=== PATIENT | female | born 1970 | race Hispanic/Latino ===

== ENCOUNTER 2018-01-28 05:53 | Day surgery (SDC) | payer OTHER ==
[2018-01-25 16:35] LABS: Absolute Lymphocytes (CBC) 1.3 K/uL (0.7-4.9); Absolute Monocytes 0.4 K/uL (0.1-1.3); Absolute Neutrophil 3.6 K/uL (1.8-8.0); Basophils % 0.9 % (0-1.3); Hematocrit 36.5 % (36.0-45.0); Lymphocytes % 23.8 % (15.3-44.8); MCH 25.7 pg (27.0-35.0); MCV 79.6 fL (80-100); MPV 8.9 fL (7.6-11.3); RBC Red Blood Cell Count 4.59 M/uL (3.86-4.86)
[2018-01-25 16:36] LABS: Urine Appearance CLEAR; Urine Bilirubin NEGATIVE (NEG); Urine Blood 1+ (NEG); Urine Color YELLOW; Urine Glucose NEGATIVE (NEG); Urine Protein NEGATIVE (NEG); Urine Specific Gravity >=1.030 (1.005-1.030); Urine pH 5.5 (5.0-7.0)
[2018-01-25 16:48] LABS: BUN Blood Urea Nitrogen 17 mg/dL (7-18); Bicarbonate 27 mmol/L (21-32); Glucose Level 81 mg/dL (74-106); Potassium 4.1 mmol/L (3.5-5.1); Sodium Level 142 mmol/L (136-145)
[2018-01-25 16:49] LABS: Urine Microscopic Reflex ORDER UMIC
[2018-01-25 17:05] LABS: Urine Bacteria 20-50 /HPF (<20); Urine RBC <5 /HPF (NONE SEEN)
[2018-01-25 17:06] LABS: Urine Culture Reflex Order REFLEXED
--- NOTE | 2018-01-25 19:29 | EKG ---
Test Date: 2018-01-25 Test Time: 16:03:10 Fisher Lobster: MINNIE MEASUREMENT RESULTS: Intervals: Rate: 56 HI: 142 QRSD: 86 QT: 432 QTc: 416 Woodrow: P: 67 HI: 142 QRS: 77 T: 51 INTERPRETIVE STATEMENTS: Sinus bradycardia Possible Left atrial enlargement Borderline ECG Compared to ECG 04/13/2015 12:32:48 Right-axis deviation no longer present Electronically Signed On 01-25-18 19:29:19 CDT by Jaime Salinas
[2018-01-28] MEDS ORDERED: Ringers Lactate 1,000 ML IV ONE ×2 (06:11→10:01)
[2018-01-28] MEDS ORDERED: SCOPOLAMINE HYDROBROMIDE PATCH TD ONE (06:11)
[2018-01-28] MEDS: CEFAZOLIN/SWI 1gm 1 GM/10 ML SYR ONE ×2 (06:31→07:10)
[2018-01-28] MEDS ORDERED: LIDOCAINE 2% MPF 5 ML VIAL ONE (06:48)
[2018-01-28] MEDS ORDERED: DEXAMETHASONE 10 MG/ML VIAL ONE (06:48)
[2018-01-28] MEDS ORDERED: FENTANYL CITR 250 MCG/5 ML ONE ×2 (06:48→08:55)
[2018-01-28] MEDS ORDERED: PROPOFOL 200 MG/20 ML VIAL IV ONE (06:48)
[2018-01-28] MEDS ORDERED: ROCURONIUM 50 MG/5 ML VIAL IV ONE (06:48)
[2018-01-28] MEDS ORDERED: MIDAZOLAM HCL 2 MG/2 ML INJ ONE (06:48)
[2018-01-28] MEDS ORDERED: ONDANSETRON HCL 40 MG/20 ML VIAL ONE (06:50)
[2018-01-28] MEDS: NA CHLORIDE 0.9% 1,000 ML ONE ×2 (06:52→07:25)
[2018-01-28] MEDS ORDERED: KETOROLAC 30 MG/ML INJ ONE (09:29)
[2018-01-28] MEDS ORDERED: Mastisol Adhesive Liq ONE (10:03)
[2018-01-28] MEDS ORDERED: IBUPROFEN 200 MG TAB PO ONE (12:08)
[2018-01-28] MEDS ORDERED: IBUPROFEN 400 MG TAB ONE (12:09)
--- NOTE | 2018-01-28 13:21 | OP ---
Date of Procedure: 01/28/2018 Surgeon: Svetlana Barillas MD Greenhouse Worker: Dr. Fung. Preoperative Diagnoses: Abnormal uterine bleeding-ovulatory dysfunction or adenomyosis. Postoperative Diagnoses: Abnormal uterine bleeding-ovulatory dysfunction or adenomyosis. Procedures Performed: Total laparoscopic hysterectomy, bilateral salpingectomy, cystoscopy. Anesthesia: General endotracheal. Complications: No complications. Drains: No drains. Condition: The patient is stable. Estimated Blood Loss: Minimal. Specimens: Uterus, bilateral tubes. Findings: There was a small pocket of possible endometriosis close to the left uterosacral. However , no other endometriosis was seen. Both ovaries and tubes appeared to be normal, tubes with the evid ence of tubal ligation. The uterus retroflexed and slightly enlarged. There was a superficial seros al injury to the bowel in the sigmoid during the time of the hysterectomy, however, on inflation with air, it was completely found to be intact. Consultation with Dr. Ramirez obtained and recommendation was to leave it alone and not put any further sutures. The wound was hemostatic. There were adhesio ns in the left lower quadrant, which were also taken down. Both ureters without any abnormal placeme nt. Description Of Procedure: After informed consent was verified, patient was taken back to the OR, [facility] in a supine fashion on the operating table. After general anesthesia was given, she was placed i n dorsal lithotomy position. Using pelvic exam, uterus found to be retroflexed. No adnexal masses w ere felt, slightly enlarged. Abdomen, vulva, vagina, and perineum were prepped and draped in a steri le fashion. Schulte was placed to drain the bladder and attached to cysto tubing for retrograde fillin g bag. A large VCare inserted into the uterus and fixed in place. This area was then draped. A 1 cm infraumbilical incision was made along the old scar. Fascia exposed, incised, tagged with 0 V icryl sutures. Peritoneum entered bluntly. S retractors placed. Jennifer introduced. Site of entry was checked and was unremarkable. Liver and gallbladder were unremarkable as well. There was a wallace gn left ovarian cyst. However, no other endometriosis was found. Uterus was found to be retroflexed . A 10 mm suprapubic and 5 mm left lower quadrant ports were placed under direct vision. An Drew-M asters pocket was formed in the peritoneum on the left side just at the uterine artery. No other end ometriosis seen. Using a 5 mm LigaSure, the anterior peritoneum on the broad towards the left was opened. Then dissec tion was carried towards the bladder and all this was taken down with the help of the LigaSure. Once this was taken down to the level of the right round ligament, then the utero-ovarian ligament, mesos alpinx were cut. Then the round ligament was taken down. Posterior peritoneum was opened up all the way to the attachment of the left uterosacral. The broad ligament was skeletonized. Vessels expose d. Similar dissection performed on the opposite side, taking the utero-ovarian, mesosalpinx, round l igament, and posterior peritoneum to the right uterosacral, skeletonizing the broad ligament then in the suprapubic area. The vesicovaginal space was opened up using a monopolar hook blade, opening up this space on the top of the VCare cup. Then the bladder was dissected inferiorly. We went on to op en up the space medial to the vessels with the help of a monopolar hook blade. Then bipolar basket t ip was used to take down the vessels first on the right side. Then, the cardinal ligament was also t aken down. Similar dissection performed on the opposite side. There was good hemostasis. Circumfer ential colpotomy was performed with monopolar hook blade and specimen pulled out through the vagina. The tubes were then removed with the help of the LigaSure. The ovaries appeared to be healthy and in tact, and the pictures were taken. While doing the dissection on the left side, inadvertently, the t ip of the LigaSure hit the sigmoid and this was where there was a small cut, most likely from a contu candice. After consultation was obtained intraoperatively, the air was insufflated into the bowel and with occ lusion superiorly and fluid filled the pelvis, the area of injury was submerged. There was no eviden ce of any air leak, so no repair was done since it was just a superficial injury and not going throug h the mucosa. Both ureters had normal peristalsis on both sides. No electrical, mechanical, or thermal injury to t hem. A 0 Vicryl was used to close the vaginal cuff, 2 simple angle stitches and 3 [id number] i n the middle. There was excellent hemostasis. Thorough irrigation and suction were performed. Cyst oscopy was performed. The 17-Cymro sheath, 30-degree lens and normal saline. Both ureteric orifice s were well visualized, and there were strong jets of urine from both. No evidence of any trauma to the bladder. The bladder drained and cystoscope removed as well as the vaginal bulb for occlusion. Schulte was left out. The abdomen was desufflated after taking the ports under direct vision. Fascia at the umbilicus was closed with the help of [id number] 0 Vicryl and a simple 0 Vicryl at the suprapubic. All skin i ncisions closed with the help of interrupted 4-0 Monocryl and then the umbilical incision with a cont inuous subcuticular Monocryl. The patient was recovered from anesthesia after instrument, needle, an d sponge counts x3 were correct at the end of the case. The patient tolerated the procedure well. S he will follow up with me in 1 week. She got 1 g of Ancef preop. Then, she will be given 1 more gra m before she is discharged. BRENT/JORJE Voice ID: [id number] Report ID: [id number]
== END 2018-01-28 12:38 | disposition home or self-care (01) ==
LOC: OR 05:53
PROVIDERS: ATTEND Obstetrics & Gynecology
PROC: 0UT74ZZ Resection of Bilateral Fallopian Tubes, Percutaneous Endoscopic Approach (ICD-10-PCS; 2018-01-28)
PROC: 0UT94ZZ Resection of Uterus, Percutaneous Endoscopic Approach (ICD-10-PCS; principal; 2018-01-28 07:00)
DX: N92.1 Excessive and frequent menstruation with irregular cycle (principal); N83.8 Other noninflammatory disorders of ovary, fallopian tube and broad ligament; N80.0 Endometriosis of uterus; K91.72 Accidental puncture and laceration of a digestive system organ or structure during other procedure; Y65.8 Other specified misadventures during surgical and medical care; Y82.9 Unspecified medical devices associated with adverse incidents; Y92.234 Operating room of hospital as the place of occurrence of the external cause; E28.9 Ovarian dysfunction, unspecified; D50.9 Iron deficiency anemia, unspecified; I10 Essential (primary) hypertension; Z83.3 Family history of diabetes mellitus; Z82.49 Family history of ischemic heart disease and other diseases of the circulatory system; Z82.3 Family history of stroke
CPT/HCPCS: 36415; 80048; 81003; 81015; 81025; 85025; 86850; 86900; 86901; 87086; 87088; 88307; 93005; J0690; J1100; J2250; J2405; J7030

== ENCOUNTER 2018-02-18 20:33 | Observation (INO) | payer OTHER ==
[2018-02-18] MEDS ORDERED: NA CHLORIDE 0.9% 1,000 ML ONE (21:12)
[2018-02-18 21:20] LABS: Absolute Lymphocytes (CBC) 1.2 K/uL (0.7-4.9); Absolute Monocytes 0.5 K/uL (0.1-1.3); Absolute Neutrophil 6.1 K/uL (1.8-8.0); Basophils % 0.6 % (0-1.3); Eosinophils % 2.4 % (0-4.4); Hematocrit 35.1 % (36.0-45.0); MCH 26.7 pg (27.0-35.0); MCV 79.9 fL (80-100); MPV 8.8 fL (7.6-11.3); Monocytes % 6.5 % (3.3-12.3); RBC Red Blood Cell Count 4.39 M/uL (3.86-4.86)
[2018-02-18 22:02] LABS: Potassium 3.8 mmol/L (3.5-5.1)
--- NOTE | 2018-02-18 23:28 | EDPHYS ---
Physician Documentation [facility] Name: Lexi Smith Age: 47 yrs Sex: Female : 1970 Arrival Date: 02/18/2018 Time: 20:34 Bed 20 Private MD: ED Physician Johnny Delgadillo HPI: 02/18 21:22 This 47 yrs old Female presents to ER via EMS with complaints of vaginal kav bleeding s/p hysterectomy 2 weeks ago. 21:22 The patient presents with vaginal bleeding that is heavy. Onset: The symptoms/episode kav began/occurred acutely, just prior to arrival. Modifying factors: The symptoms are alleviated by nothing, the symptoms are aggravated by nothing. Associated signs and symptoms: Pertinent positives: vaginal bleeding, Pertinent negatives: cramping, dysuria, nausea, vomiting. Severity of symptoms: At their worst the symptoms were moderate, just prior to arrival. The patient is sexually active, reportedly has a single partner. The patient has been recently seen by a physician: Dr. gay today. S/P Laproscopic Vaginal Hysterectomy approximately 2 weeks ago /Dr. Washburn. 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 - Social history:: Smoking status: Patient/guardian denies using tobacco. - Ebola Screening: : Patient negative for fever greater than or equal to 101.5 degrees Fahrenheit, and additional compatible Ebola Virus Disease symptoms. - Family history:: not pertinent. - Hospitalizations: : No recent hospitalization is reported. - History obtained from: spouse. ROS: 21:26 Constitutional: Negative for fever, chills, and weight loss, Eyes: Negative for injury, kav pain, redness, and discharge, ENT: Negative for injury, pain, and discharge, Neck: Negative for injury, pain, and swelling, Cardiovascular: Negative for chest pain, palpitations, and edema, Respiratory: Negative for shortness of breath, cough, wheezing, and pleuritic chest pain, Abdomen/GI: Negative for abdominal pain, nausea, vomiting, diarrhea, and constipation, Back: Negative for injury and pain, MS/Extremity: Negative for injury and deformity, Skin: Negative for injury, rash, and discoloration, Neuro: Negative for headache, weakness, numbness, tingling, and seizure, Psych: Negative for depression, anxiety, suicide ideation, homicidal ideation, and hallucinations, Allergy/Immunology: Negative for hives, rash, and allergies, Endocrine: Negative for neck swelling, polydipsia, polyuria, polyphagia, and marked weight changes, Hematologic/Lymphatic: Negative for swollen nodes, abnormal bleeding, and unusual bruising. 21:26 : Positive for vaginal bleeding, Negative for urinary symptoms. Exam: 21:26 Constitutional: This is a well developed, well nourished patient who is awake, alert, kav and in no acute distress. Head/Face: Normocephalic, atraumatic. Eyes: Pupils equal round and reactive to light, extra-ocular motions intact. Lids and lashes normal. Conjunctiva and sclera are non-icteric and not injected. Cornea within normal limits. Periorbital areas with no swelling, redness, or edema. ENT: Nares patent. No nasal discharge, no septal abnormalities noted. Tympanic membranes are normal and external auditory canals are clear. Oropharynx with no redness, swelling, or masses, exudates, or evidence of obstruction, uvula midline. Mucous membranes moist. Neck: Trachea midline, no thyromegaly or masses palpated, and no cervical lymphadenopathy. Supple, full range of motion without nuchal rigidity, or vertebral point tenderness. No Meningismus. Chest/axilla: Normal chest wall appearance and motion. Nontender with no deformity. No lesions are appreciated. Cardiovascular: Regular rate and rhythm with a normal S1 and S2. No gallops, murmurs, or rubs. Normal PMI, no JVD. No pulse deficits. Respiratory: Lungs have equal breath sounds bilaterally, clear to auscultation and percussion. No rales, rhonchi or wheezes noted. No increased work of breathing, no retractions or nasal flaring. Abdomen/GI: Soft, non-tender, with normal bowel sounds. No distension or tympany. No guarding or rebound. No evidence of tenderness throughout. Back: No spinal tenderness. No costovertebral tenderness. Full range of motion. Pelvic Exam: Normal external genitalia. Speculum exam with closed cervical os, no discharge or bleeding noted. Bimanual exam with normal adnexa, no adnexal or cervical motion tenderness. Normal uterus. Skin: Warm, dry with normal turgor. Normal color with no rashes, no lesions, and no evidence of cellulitis. MS/ Extremity: Pulses equal, no cyanosis. Neurovascular intact. Full, normal range of motion. Neuro: Awake and alert, GCS 15, oriented to person, place, time, and situation. Cranial nerves II-XII grossly intact. Motor strength 5/5 in all extremities. Sensory grossly intact. Cerebellar exam normal. Normal gait. Psych: Awake, alert, with orientation to person, place and time. Behavior, mood, and affect are within normal limits. 21:26 : Pelvic Exam: External exam: is normal, Speculum exam: moderate bleeding, blood clots in vaginal vault, discharge, bloody. Vital Signs: 20:48 BP 150 / 64; Pulse 73; Resp 16 S; Pulse Ox 99% on R/A; Pain 0/10; jd3 22:01 BP 136 / 65; Pulse 66; Resp 15 S; Pulse Ox 100% on R/A; Pain 0/10; jd3 23:22 BP 156 / 75; Pulse 58; Resp 17 S; Pulse Ox 100% on R/A; jd3 MDM: 20:37 Patient medically screened. pkl 21:33 Data reviewed: vital signs, nurses notes. Physician consultation: Svetlana dunbar was called at 21:36, regarding patient's condition. 21:45 Physician consultation: was contacted at 21:45, would like further tests performed, CT kav scan. 22:17 Physician consultation: was contacted at 22:17, and will see patient in ED. kapercy 23:04 ED course: Dr. Mccormack here to exam patient.. kav 02/18 20:47 Order name: CBC with Diff; Complete Time: 21:30 pkl 02/18 20:47 Order name: Chem 7; Complete Time: 22:17 pk 02/18 21:41 Order name: CT Abd/Pelvis - W/Contrast kav 02/18 23:25 Order name: Type And Screen bs1 Administered Medications: 21:11 Drug: NS 0.9% 1000 ml Route: IV; Rate: 125 ml/hr; Site: left antecubital; jd3 02/19 00:00 Follow up: Response: No adverse reaction; IV Status: Infusion continued upon admission; jd3 IV Intake: 300ml Disposition: 00:50 Co-signature as Attending Physician, Johnny dunbar Disposition: 02/18/18 23:28 Hospitalization ordered by Svetlana Barillas for Observation. Preliminary diagnosis is Hematoma of obstetric wound. - [facility]. - Status is Observation. jd3 - Condition is Stable. - Problem is new. - Symptoms are unchanged. UTI on Admission? No Signatures: Dispatcher [employer] EDMeredith Martinez, RN Johnny Romero MD MD pkl Vern, Katherine, DIRECT SUPPORT [facility] DIRECT SUPPORT [facility] Laurent White RN RN jd3 Corrections: (The following items were deleted from the chart) 02/18 21:06 20:54 IV Saline Lock ordered. jd3 jd3 23:58 23:28 Hospitalization Ordered by Svetlana Barillas MD for Observation. Preliminary diagnosis is Hematoma of obstetric wound. Bed requested for Telemetry/MedSurg (observation). Status is Observation. Condition is Stable. Problem is new. Symptoms are unchanged. UTI on Admission? No. kav 02/19 00:00 02/18 23:58 02/18/2018 23:28 Hospitalization Ordered by Svetlana Barillas MD for jd3 Observation. Preliminary diagnosis is Hematoma of obstetric wound. Bed requested for [facility]. Status is Observation. Condition is Stable. Problem is new. Symptoms are unchanged. UTI on Admission? No. kl
--- NOTE | 2018-02-18 23:28 | ER ---
Nurse's Notes [facility] Name: Lexi Smith Age: 47 yrs Sex: Female : 1970 Arrival Date: 02/18/2018 Time: 20:34 Bed 20 Private MD: Diagnosis: Hematoma of obstetric wound Presentation: 02/18 20:35 Presenting complaint: EMS states: "S/P partial hysterectomy with Dr Barillas about 2 bs1 weeks ago, the instructions stated that if she started bleeding to come to the ER, patient started bleeding heavily today around 7:40pm.". 20:35 Method Of Arrival: [facility] bs1 20:45 Transition of care: patient was not received from another setting of care. Onset of jd3 symptoms was February 18, 2018. Risk Assessment: Do you want to hurt yourself or someone else? Patient reports no desire to harm self or others. Initial Sepsis Screen: Does the patient meet any 2 criteria? No. Patient's initial sepsis screen is negative. Does the patient have a suspected source of infection? No. Patient's initial sepsis screen is negative. Care prior to arrival: IV initiated. 20 GA, in the left antecubital area. 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 - Social history:: Smoking status: Patient/guardian denies using tobacco. - Ebola Screening: : Patient negative for fever greater than or equal to 101.5 degrees Fahrenheit, and additional compatible Ebola Virus Disease symptoms. - Family history:: not pertinent. - Hospitalizations: : No recent hospitalization is reported. - History obtained from: spouse. Screenin:49 Abuse screen: Denies threats or abuse. Nutritional screening: No deficits noted. jd3 Tuberculosis screening: No symptoms or risk factors identified. Fall Risk IV access (20 points). Ambulatory Aid- None/Bed Rest/Nurse Assist (0 pts). Gait- Normal/Bed Rest/Wheelchair (0 pts) Mental Status- Oriented to own ability (0 pts). Total Garcia Fall Scale indicates No Risk (0-24 pts). Assessment: 20:41 General: Appears uncomfortable, Behavior is cooperative, appropriate for age, anxious. jd3 Pain: Denies pain. Neuro: Level of Consciousness is awake, alert, obeys commands, Oriented to person, place, time, situation, Appropriate for age. Cardiovascular: Heart tones S1 S2 present Capillary refill < 3 seconds Patient's skin is warm and dry. Respiratory: Airway is patent Respiratory effort is even, unlabored, Respiratory pattern is regular, symmetrical, Breath sounds are clear bilaterally. GI: Abdomen is flat, Bowel sounds present X 4 quads. Abd is soft and non tender X 4 quads. Patient currently denies nausea, vomiting. : Reports vaginal bleeding that is heavy flow since 1930 dark in color. EENT: No signs and/or symptoms were reported regarding the EENT system. Derm: Skin is intact, Skin is dry, Skin is normal, Skin temperature is warm. Musculoskeletal: Circulation, motion, and sensation intact. Range of motion: intact in all extremities. 21:30 Reassessment: Patient appears in no apparent distress at this time. Patient and/or jd3 family updated on plan of care and expected duration. Pain level reassessed. Patient is alert, oriented x 3, equal unlabored respirations, skin warm/dry/pink. 22:02 Reassessment: Patient appears in no apparent distress at this time. Patient and/or jd3 family updated on plan of care and expected duration. Pain level reassessed. Patient is alert, oriented x 3, equal unlabored respirations, skin warm/dry/pink. waiting for CT scan. 23:23 Reassessment: Patient appears in no apparent distress at this time. Patient and/or jd3 family updated on plan of care and expected duration. Pain level reassessed. Patient is alert, oriented x 3, equal unlabored respirations, skin warm/dry/pink. pt resting in bed. Dr. Barillas at bedside discussing plan of care with pt. 23:57 Reassessment: Patient appears in no apparent distress at this time. Patient and/or jd3 family updated on plan of care and expected duration. Pain level reassessed. Patient is alert, oriented x 3, equal unlabored respirations, skin warm/dry/pink. report given to OR nurse. and pt taken by bed to OR. Vital Signs: 20:48 BP 150 / 64; Pulse 73; Resp 16 S; Pulse Ox 99% on R/A; Pain 0/10; jd3 22:01 BP 136 / 65; Pulse 66; Resp 15 S; Pulse Ox 100% on R/A; Pain 0/10; jd3 23:22 BP 156 / 75; Pulse 58; Resp 17 S; Pulse Ox 100% on R/A; jd3 ED Course: 20:34 Patient arrived in ED. ds1 20:37 Johnny Delgadillo MD is Attending Physician. pkl 20:41 Laurent Berger RN is Primary Nurse. jd3 20:47 Triage completed. jd3 20:49 Arm band placed on. jd3 20:49 Patient has correct armband on for positive identification. Placed in gown. Bed in low jd3 position. Call light in reach. Side rails up X2. Adult w/ patient. 20:52 Arline Marsh FNP is PHCP. kav 20:52 Johnny Delgadillo MD is Attending Physician. kav 21:11 CBC with Diff Sent. jd3 21:11 Chem 7 Sent. jd3 21:11 Maintain EMS IV. Dressing intact. Good blood return noted. Site clean \\T\\ dry. Gauge \\T\\ ken 3 site: 20 G left AC. 21:15 Assist provider with pelvic exam: Set up pelvic tray. Performed by Arline GANDHI bs1 Patient tolerated well. 21:44 Radiology exam delayed due to lab results not completed at this time. (BUN/Creatinine). vr 22:04 Radiology exam delayed due to lab results not completed at this time. (BUN/Creatinine). nj 22:[address] via wheelchair. vm2 22:28 CT completed. Patient tolerated procedure well. Patient moved back from CT. vm2 22:33 CT Abd/Pelvis - W/Contrast In Process Unspecified. EDMS 23:00 Assist provider with pelvic exam: Set up pelvic tray. Performed by Svetlana Barillas MD bs1 Patient tolerated well. Dr Barillas informed Nurse Nati to call OR/anesthesia for vaginal exam under anesthesia and possibly repair of vaginal cuff/ possible laproscopy. Informed charge nurse/heating unit installer. account supervisor notified to call out team. 23:26 Svetlana Barillas MD is Hospitalizing Provider. ka 23:59 Patient admitted, IV remains in place. jd3 Administered Medications: 21:11 Drug: NS 0.9% 1000 ml Route: IV; Rate: 125 ml/hr; Site: left antecubital; jd3 02/19 00:00 Follow up: Response: No adverse reaction; IV Status: Infusion continued upon admission; jd3 IV Intake: 300ml Intake: 00:00 IV: 300ml; Total: 300ml. jd3 Outcome: 02/18 23:28 Decision to Hospitalize by Provider. kav 23:58 Admitted to OR accompanied by nurse, via stretcher, with chart, Report called to j bedside report given to OR nurse using the SBAR method. 23:58 Condition: stable 23:58 Instructed on the need for admit, Demonstrated understanding of instructions. 02/19 00:00 Patient left the ED. jd3 Signatures: Dispatcher [employer] EDMS Johnny Delgadillo MD MD pkl Vern, Katherine, SAW CLEANER SAW CLEANER Vianney Lares Victoria vr Jordan, Nathan nj McGuire, Victoria vm2 Laurent Berger RN RN jd3 Nati Parsons RN RN bs1
[2018-02-18] MEDS ORDERED: PROPOFOL 200 MG/20 ML VIAL IV ONE (23:56)
[2018-02-18] MEDS ORDERED: FENTANYL CITR 100 MCG/2 ML ONE (23:57)
[2018-02-18] MEDS ORDERED: LIDOCAINE 1% MPF 5 ML VIAL ONE (23:57)
[2018-02-18] MEDS ORDERED: ROCURONIUM 50 MG/5 ML VIAL IV ONE (23:57)
[2018-02-19] MEDS ORDERED: Ringers Lactate 1,000 ML IV ONE (00:07)
[2018-02-19] MEDS ORDERED: LIDOCAINE 1% W/EPI 1:100,000 MDV 50 ML VIAL ONE (00:24)
[2018-02-19] MEDS ORDERED: VASOPRESSIN 20 UNIT/ML VIAL ONE (00:25)
[2018-02-19] MEDS ORDERED: CEFAZOLIN/SWI 1gm 1 GM/10 ML SYR ONE (00:26)
[2018-02-19] MEDS ORDERED: KETOROLAC 30 MG/ML INJ ONE (00:46)
[2018-02-19] MEDS ORDERED: ONDANSETRON HCL 40 MG/20 ML VIAL ONE (00:46)
[2018-02-19] MEDS ORDERED: DEXAMETHASONE 10 MG/ML VIAL ONE (00:46)
[2018-02-19] MEDS ORDERED: GLYCOPYRROLATE 0.2 MG/ML SYR ONE (00:52)
[2018-02-19] MEDS ORDERED: NEOSTIGMINE 1 MG/ML -5 ML SYRINGE ONE (00:52)
[2018-02-19] MEDS ORDERED: MEPERIDINE HCL 50 MG/ML AMP IV PRN (01:40)
[2018-02-19] MEDS ORDERED: HYDROCODONE/APAP 5/325 MG TAB PO PRN (01:40)
[2018-02-19] MEDS ORDERED: IBUPROFEN 400 MG TAB PO PRN (01:40)
--- NOTE | 2018-02-19 03:33 | CON ---
Date of Consultation: 02/18/2018 Request for consultation from the ER. Chief Complaint For Presentation: Vaginal bleeding 3 weeks postop from a total laparoscopic hysterec shae and bilateral salpingectomy. History Of Present Illness: The patient is a 47-year-old who had heavy menstrual bleeding and severe anemia as this is not treatable conservatively after it has been observed for a while. She was taken for hysterectomy. Hysterectomy was performed on January 28 and vaginal cuff was closed with 2-angle simple 0-Vicryl sutures and 3 [id number] in the middle. The patient had been seen 1 week postop. Her complaints were minimal, some suprapubic pain near the port and with urination. She was treated with empiric antibiotics. No vaginal bleeding. Reports delcid ving mild discharge, brownish in color, intermittently in the last 2 weeks. Occasional left lower qu adrant sharp pain which was minor in the past few days; however, the patient lives at home, does not recollect any hard activity; however, she has been bending over doing her laundry, but not lifting an ything more than 10 pounds per her history. She noticed that she had some vaginal bleeding, went int o the toilet, and saw further bright red blood, and she presented to the ER. On examination here in the ER, her left lower quadrant pain was minimal. On review, her left lower quadrant pain was minima l at this time; however, vaginal bleeding with small clots was seen. The nurse practitioner in the E R had done an exam and clots were evacuated. Pad was placed. There was mild amount of bleeding on t he pad at this time. The patient denies any dizziness, shortness of breath, fever, or chills. Bowels are moving normally. She has been taking iron with a stool softener and has been able to maintain bowel movements normal ly, passing flatus, tolerating her diet at 5:30-6 p.m. this evening. No other problems noted. Urina tion normal. No lower urinary tract symptoms. Review of Systems: All review of systems negative. Past Medical History: Recent diagnosis of hypertension. Past Surgical History: Significant for most recently a total laparoscopic hysterectomy, bilateral sa lpingectomy, and cystoscopy. Medications: At this time, iron and Colace are the medications she is taking also an antihypertensiv e. Allergies: NO ALLERGIES TO MEDICATIONS. 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 Physical Examination: Vital Signs: Blood pressure 156/75, heart rate of 76, respirations of 17, and 100% on room air. Head and Neck: Normal. The patient does not appear to be in distress or in pain, lying supine on he r bed in the ER. Her is by her side. Lungs: Clear. Heart: Regular rate and rhythm. Abdomen: Soft, nondistended, and nontender. Incisions x3 were well healed. Scars palpable. PELVIC: Performed by placing the urinal on her bottom. Since stirrups were available, a small specu lum was used to expose the vaginal cuff. Small tiny clots of less than 0.5 cm were noted at the cuff on the right 2/3rds. Cuff was well visualized and the stitches were all intact. On the left side, however, there was evidence of hematoma in an attempt to bring this down to wipe the clot down to see if there is any dehiscence. I was unable to get rid of the clot. Most likely, the posterior cuff h as from the anterior aspect of the cuff, likely the suture tore through or just there is a separation; however, I cannot decidedly rule out dehiscence. On palpation, nontender vaginal cuff entirely, very minimal tenderness at the site of the hematoma. The left 1 cm of the cuff is what is under question. After the exam was complete, hemoglobin was checked, it was 11.9 g. The patient was sent for type an d screen. Her ACT was reviewed. There is a small hematoma shifting the bladder to the right and it is just to the left of the midline between the sigmoid and the bladder. Assessment And Plan: The patient is a 47-year-old 3-week posthysterectomy laparoscopic vaginal cuff repair as dictated by after review of the op not. The patient had bright red bleeding 2 weeks postop without any known other etiology. Vaginal cuff separation and dehiscence cannot be ruled out on the left side due to poor tolerance of the exam by the patient as well as difficulty with the exam itsel f, so if the patient is hemodynamically stable, plan is to do an exam under anesthesia and closed the vaginal cuff at this time, and if there are any questions or problems regarding the conten ts that may be coming through the separation which could potentially be bowel. She was also consente d for diagnostic laparoscopy as needed for visualization of this and then closure. There was a small amount of endometriosis from the left uterosacral that was excised at the time of the hysterectomy. So plan is to do an exam under anesthesia, repair of vaginal cuff vaginally or possible diagnostic la paroscopy and closure of the vaginal cuff. Bowel with possible risks of bleeding, infection, and injury to the bowel, bladder, ureters, surround ing structures as well as possible bowel resection. The bowel was incarcerated into this opening. T his did not appear to be the case at the time of diagnostic imaging or with my exam. Chronic iron-deficiency anemia has gotten much better. The patient is an on 11.9 g today. We will c ontinue iron postop and recheck in 3 months. Hypertension, slightly elevated blood pressure. Continue her antihypertensives. No other workup nee ded at this time other than type and screen. The patient has been informed about all the above and c onsented. BRENT/JORJE Voice ID: [id number] Report ID: [id number]
[2018-02-19 06:06] LABS: Absolute Lymphocytes (CBC) 0.4 K/uL (0.7-4.9); Absolute Monocytes 0.1 K/uL (0.1-1.3); Absolute Neutrophil 7.5 K/uL (1.8-8.0); Basophils % 0.3 % (0-1.3); Hematocrit 35.9 % (36.0-45.0); Lymphocytes % 4.6 % (15.3-44.8); MCH 26.4 pg (27.0-35.0); MCV 80.5 fL (80-100); MPV 8.6 fL (7.6-11.3); RBC Red Blood Cell Count 4.46 M/uL (3.86-4.86)
[2018-02-19 07:15] LABS: Blood Morphology Comment NOT SEEN (NOT SEEN); Platelet Estimate ADEQ
--- NOTE | 2018-02-19 08:12 | RAD REPORT ---
EXAM DESCRIPTION: CT - Abdomen Pelvis W Contrast - 02/19/2018 4:25 am CLINICAL HISTORY: Abdominal pain with vaginal bleeding. Hysterectomy 2 weeks ago. COMPARISON: none. TECHNIQUE: Computed axial tomography of the abdomen pelvis was obtained. 100 cc Isovue-300 was admin istered intravenously. Oral contrast was not requested which limits evaluation of bowel. A preliminar y report was generated by virtual radiologic reviewed prior to this dictation All CT scans are performed using dose optimization technique as appropriate and may include automated exposure control or mA/KV adjustment according to patient size. FINDINGS: Several hepatic cysts are present. The largest measures 2 centimeters. Spleen, pancreas, adrenal and kidneys appear unremarkable. There is no evidence of diverticulitis. The appendix is normal. 2.4 centimeter left ovarian cyst is present. A hysterectomy has been performed. A 2.3 centimeter low-density structure abuts the right anterior aspect of the vaginal cuff with stran ding in the adjacent fat. Peripheral enhancement is present. A small amount of free fluid is present IMPRESSION: 2.3 centimeter low-density structure abutting the anterior right aspect of the vaginal c uff probably representing a small abscess.
--- NOTE | 2018-02-19 09:25 | OP ---
Date of Procedure: 02/19/2018 Surgeon: Svetlana Barillas MD Mortgage Loan Specialist: None. Preoperative Diagnosis: Post hysterectomy vaginal cuff bleeding postoperative week #4. Postoperative Diagnoses: Post hysterectomy vaginal cuff bleeding postoperative week #4. No dehiscen ce. Superficial separation due to the cut-through of the vaginal cuff; however, the cuff was only se parated at the vaginal epithelium and subepithelium. The rest of the vaginal cuff was intact in the deeper tissues. Procedures: Exam under anesthesia, vaginal cuff repair using a vaginal approach. Estimated Blood Loss: Minimal. Specimens: None. Complications: None. Drains: None. Condition: The patient's condition is stable. Anesthesia: General endotracheal. Ancef 1 g was given preop. Description Of Procedure: After the patient was taken back to the OR, she was placed in a supine fas hion on the operating table. She was consented appropriately, and benefits and risks were explained as written on the consent form. After Q and A was done with both and , then the patient was taken back. She was placed in supine fashion. General anesthesia was given, and she was placed in a dorsal lithotomy position using Drew stirrups. Vaginal prep was done in vulva, vagina, and per ineum. She was draped appropriately. A Riddle speculum was placed posteriorly and a Allyson placed anteriorly to expose the vaginal cuff. Th e suture on the left angles of the cuff appeared to have cut-through the vaginal epithelium and subep ithelium. This was what was bleeding. There was another spot of a non-apposition of the vaginal epi thelium in the middle, so plan was to repair all these areas using tip of my blunt instrument. The v aginal cuff was checked for its integrity and it was intact. No evidence of dehiscence. A 0 Vicryl suture was taken and vaginal epithelium was sutured anterior to posterior using figure-of- eight sutures x3 starting at the left angle, then to the left of the midline, and in the midline. Al l 3 sutures were trimmed the short tails. Then, examination was visually done and there was no bleed ing at all, was completely hemostatic. All the instruments were removed. Instrument, needle, and sponge counts were done and were correct a t the end of the case. A [address]-1 needle was used for suturing. The patient was recover ed from anesthesia and taken to PACU in stable condition. Her bladder was drained using a Schulte cath eter. About 250 to 300 mL of urine was drained out and it was clear light appearing. She will be ad mitted for observation overnight and CBC will be done in the morning. Then, she will be discharged h ome. She will also have a followup planned in 1 week. MARIA C Voice ID: [id number] Report ID: [id number]
== END 2018-02-19 12:50 | disposition home or self-care (01) ==
LOC: ER 20:33 → ERHOLD 23:44 → UNDOADMOB 23:44 → OR 23:59 → INTOOBSV 02-19 00:32 → 2ND 02-19 00:32
PROVIDERS: ADMIT Obstetrics & Gynecology; ATTEND Obstetrics & Gynecology
PROC: 0UQG7ZZ Repair Vagina, Via Natural or Artificial Opening (ICD-10-PCS; principal; 2018-02-19)
DX: N99.820 Postprocedural hemorrhage of a genitourinary system organ or structure following a genitourinary system procedure (principal); I10 Essential (primary) hypertension; Z90.710 Acquired absence of both cervix and uterus
CPT/HCPCS: 36415; 74177; 80048; 85025; 86850; 86900; 86901; 96360; 96361; 99285; G0378; J0690; J1100; J2405; J2710; J3010; J7030; Q9967

== ENCOUNTER 2022-12-12 22:30 | Inpatient (IN) | payer BC ==
--- OUTSIDE RECORDS SUMMARY | 2022-12-12 22:33 | XMS REPORT | Continuity of Care Document ---
:1970 Author Organization [facility] Address [address] [place] [address] [place] [id number] Care Team Providers Name Role Phone MARVIN PENNY Attending Clinician Unavailable Payers Payer Name Policy Type Policy Number Effective Date Expiration Date S [facility] - [id number] 2020 00:00:00 OUT OF STATE Problems This patient has no known problems. Allergies, Adverse Reactions, Alerts Allergy Allergy Status Severity Reaction(s) Onset Inactive Treating Comm ents Source Name Type Date Date Clinician NO KNOWN Drug Active [facility] Medications This patient has no known medications. Procedures This patient has no known procedures. Encounters Start End Encounter Admission Attending Care Care Encounter Source Date/Time Date/Time Type Type Clinicians Facility Department ID 2020-07-25 2020-07-25 Outpatient R ALBERTO PENNY [facility] [id number] [employer] 19:00:00 19:00:00 MARVIN zaragoza f [facility] Results This patient has no known results.
[2022-12-12] MEDS ORDERED: NA CHLORIDE 0.9% 1,000 ML ONE (23:33)
[2022-12-12] MEDS ORDERED: MAGNES/ALUMIN/SIMET 30ML UCUP ONE (23:33)
[2022-12-12] MEDS ORDERED: ONDANSETRON 4 MG/2 ML VIAL ONE (23:33)
[2022-12-12] MEDS ORDERED: PANTOPRAZOLE 40 MG INJ ONE (23:33)
[2022-12-12] MEDS ORDERED: FENTANYL CITR 100 MCG/2 ML ONE (23:33)
[2022-12-12] MEDS ORDERED: LIDOCAINE VISCOUS 2% SOLN 15 ML UDC ONE (23:34)
[2022-12-12 23:35] LABS: Absolute Lymphocytes (CBC) 1.6 K/uL (0.7-4.9); Hematocrit 39.9 % (36.0-45.0); Lymphocytes % 24.3 % (15.3-44.8); MCV 92.2 fL (80-100); MPV 8.5 fL (7.6-11.3); RBC Red Blood Cell Count 4.33 M/uL (3.86-4.86)
[2022-12-13 00:08] LABS: ALT/SGPT 29 U/L (13-56); AST/SGOT 16 U/L (15-37); Albumin 3.4 g/dL (3.4-5.0); Alkaline Phosphatase 97 U/L (45-117); BUN Blood Urea Nitrogen 17 mg/dL (7-18); Bicarbonate 28 mEq/L (21-32); Bilirubin Total 0.3 mg/dL (0.2-1.0); Glomerular Filtration Rate 73 ml/min (=/>90); Glucose Level 114 mg/dL (74-106); Lipase 28 U/L (13-75); NT PRO-BNP 71 pg/mL (<125); Potassium 3.9 mEq/L (3.5-5.1); Sodium Level 140 mEq/L (136-145)
[2022-12-13 00:09] LABS: Protime INR 1.01
[2022-12-13 00:15] LABS: Bilirubin Direct < 0.1 mg/dL (0-0.2); Bilirubin Indirect, Calculated ND mg/dL (0.2-0.8)
[2022-12-13 00:17] LABS: Troponin High Sensitivity 109.4 pg/mL (<58.9)
--- NOTE | 2022-12-13 00:27 | EDPHYS ---
Physician Documentation [facility] Name: Lexi Smith Age: 52 yrs Sex: Female : 1970 Arrival Date: 12/12/2022 Time: 22:30 Bed 7 Private MD: CRISTOPHER Physician Logan Gerardo HPI: 12/12 23:01 This 52 yrs old Female presents to ER via Ambulatory with complaints of lorri ABDOMEN PAIN TO THROAT. 23:01 The patient or guardian reports chest pain that is located primarily in the epigastric lorri area. Onset: 2 hour(s) ago. The patient presents with abdominal pain in the epigastric area, in the upper abdomen. Onset: The symptoms/episode began/occurred just prior to arrival. The pain radiates to THROAT. The symptoms do not radiate. Associated signs and symptoms: none. Modifying factors: The symptoms are alleviated by nothing, the symptoms are aggravated by nothing. The chest pain is described as burning. 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 - Social history:: Smoking status: Patient denies any tobacco usage or history of. - Family history:: not pertinent. ROS: 23:01 Constitutional: Negative for fever, chills, and weight loss, Eyes: Negative for injury, lorri pain, redness, and discharge, ENT: Negative for injury, pain, and discharge, Neck: Negative for injury, pain, and swelling, Cardiovascular: Negative for chest pain, palpitations, and edema, Respiratory: Negative for shortness of breath, cough, wheezing, and pleuritic chest pain, Back: Negative for injury and pain, : Negative for injury, bleeding, discharge, and swelling, MS/Extremity: Negative for injury and deformity, Skin: Negative for injury, rash, and discoloration, Neuro: Negative for headache, weakness, numbness, tingling, and seizure, Psych: Negative for depression, anxiety, suicide ideation, homicidal ideation, and hallucinations, Allergy/Immunology: Negative for hives, rash, and allergies, Endocrine: Negative for neck swelling, polydipsia, polyuria, polyphagia, and marked weight changes, Hematologic/Lymphatic: Negative for swollen nodes, abnormal bleeding, and unusual bruising. 23:01 Abdomen/GI: Positive for abdominal pain, nausea, abdominal cramps. 23:01 MS/extremity: Negative for acute changes. Exam: 23:01 Constitutional: This is a well developed, well nourished patient who is awake, alert, lorri and in no acute distress. Head/Face: Normocephalic, atraumatic. Eyes: Pupils equal round and reactive to light, extra-ocular motions intact. Lids and lashes normal. Conjunctiva and sclera are non-icteric and not injected. Cornea within normal limits. Periorbital areas with no swelling, redness, or edema. ENT: Nares patent. No nasal discharge, no septal abnormalities noted. Tympanic membranes are normal and external auditory canals are clear. Oropharynx with no redness, swelling, or masses, exudates, or evidence of obstruction, uvula midline. Mucous membranes moist. Neck: Trachea midline, no thyromegaly or masses palpated, and no cervical lymphadenopathy. Supple, full range of motion without nuchal rigidity, or vertebral point tenderness. No Meningismus. Chest/axilla: Normal chest wall appearance and motion. Nontender with no deformity. No lesions are appreciated. Cardiovascular: Regular rate and rhythm with a normal S1 and S2. No gallops, murmurs, or rubs. Normal PMI, no JVD. No pulse deficits. Respiratory: Lungs have equal breath sounds bilaterally, clear to auscultation and percussion. No rales, rhonchi or wheezes noted. No increased work of breathing, no retractions or nasal flaring. Back: No spinal tenderness. No costovertebral tenderness. Full range of motion. Skin: Warm, dry with normal turgor. Normal color with no rashes, no lesions, and no evidence of cellulitis. MS/ Extremity: Pulses equal, no cyanosis. Neurovascular intact. Full, normal range of motion. Neuro: Awake and alert, GCS 15, oriented to person, place, time, and situation. Cranial nerves II-XII grossly intact. Motor strength 5/5 in all extremities. Sensory grossly intact. Cerebellar exam normal. Normal gait. Psych: Awake, alert, with orientation to person, place and time. Behavior, mood, and affect are within normal limits. 23:01 Abdomen/GI: Inspection: distension, that is mild, Palpation: mild abdominal tenderness, in the epigastric area, Liver: no appreciated palpable abnormalities, Hernia: not appreciated. 23:14 ECG was reviewed by the Attending Physician. [facility] Vital Signs: 22:34 BP 192 / 89; Pulse 52; Resp 18; Temp 97.6; Pulse Ox 99% on R/A; Weight 61.23 kg; Height kl 5 ft. 4 in. ; Pain 9/10; 23:00 BP 158 / 77; Pulse 55; Resp 18; Pulse Ox 100% ; vc1 06 00:00 BP 143 / 81; Pulse 65; Resp 16; Pulse Ox 100% on R/A; jb4 01:07 BP 147 / 73; Pulse 72; Resp 17; Pulse Ox 98% on R/A; jb4 01:50 BP 143 / 97; Pulse 74; Resp 16; Pulse Ox 100% on R/A; jb4 12/12 22:34 Body Mass Index 23.17 (61.23 kg, 162.56 cm) 12/12 22:34 Pain Scale: Adult kl MDM: 12/12 22:43 Patient medically screened. [facility] 23:07 Differential diagnosis: abnormal EKG, acute myocardial infarction, acute pericarditis, lorri chest wall pain, Cholelithiasis costochondritis, esophagitis, gastritis, gastroesophageal reflux disease (GERD), pancreatitis, peptic ulcer disease, pleurisy, pneumonia, stable angina, unstable angina, Cholelithiasis, gastritis, gastroesophageal reflux disease, non-specific abd pain, pancreatitis, urinary tract infection. HEART Score: History: Slightly Suspicious (0), ECG: Normal (0), Age: > 45 and < 65 years (1), Risk Factors: 1 or 2 risk factors (1), [Hypertension] [+ Family HX] Troponin: < or = 1 x Normal Limit (0). The patient was not given aspirin in the Emergency Department. Not indicated due to patient's past medical history. Data reviewed: vital signs, nurses notes, lab test result(s), EKG, radiologic studies, CT scan, plain films, ultrasound. Consideration of Admission/Observation Escalation of care including admission/observation considered. I considered the following discharge prescriptions or medication management in the emergency department Medications were administered in the Emergency Department. See MAR. Test considered but Not performed: MRI: NO MRCP. 23:14 SABI Risk Score: TOTAL SCORE = 0. Care significantly affected by the following chronic lorri conditions: Hypertension. Counseling: I had a detailed discussion with the patient and/or guardian regarding: the historical points, exam findings, and any diagnostic results supporting the discharge/admit diagnosis, the presence of at least one elevated blood pressure reading (>120/80) during this emergency department visit, lab results, radiology results, the need for outpatient follow up, for definitive care, a asset protection specialist, a family practitioner, a ventilation equipment tender. 12/12 22:58 Order name: Basic Metabolic Panel; Complete Time: 00:18 [facility] 12/12 22:58 Order name: CBC with Diff; Complete Time: 00:11 [facility] 12/12 22:58 Order name: LFT's; Complete Time: 00:18 [facility] 12/12 22:58 Order name: Magnesium; Complete Time: 00:18 [facility] 12/12 22:58 Order name: NT PRO-BNP; Complete Time: 00:18 [facility] 12/12 22:58 Order name: PT-INR; Complete Time: 00:11 [facility] 12/12 22:58 Order name: Troponin HS; Complete Time: 00:18 [facility] 12/12 22:58 Order name: Lipase; Complete Time: 00:18 [facility] 12/12 23:01 Order name: Urinalysis w/ reflexes; Complete Time: 01:59 [facility] 12/12 22:58 Order name: XRAY Chest (1 view) [facility] 12/12 22:58 Order name: US Abdomen Limited 12/12 22:58 Order name: CT Abd/Pelvis - IV Contrast Only 12/12 22:58 Order name: EKG; Complete Time: 22:59 [facility] 12/12 22:58 Order name: Cardiac monitoring; Complete Time: 23:42 [facility] 12/12 22:58 Order name: EKG - Nurse/Tech; Complete Time: 23:38 [facility] 12/12 22:58 Order name: IV Saline Lock; Complete Time: 23:38 [facility] 12/12 22:58 Order name: Labs collected and sent; Complete Time: 23:38 [facility] 12/12 22:58 Order name: O2 Per Protocol; Complete Time: 23:38 [facility] 12/12 22:58 Order name: O2 Sat Monitoring; Complete Time: 23:38 lorri EC:14 Rate is 57 beats/min. Rhythm is regular. QRS [place] is Normal. OK interval is normal. QRS lorri interval is normal. QT interval is normal. No Q waves. T waves are Normal. No ST changes noted. Clinical impression: Sinus bradycardia and No evidence of ischemia. Interpreted by me. Reviewed by me. Administered Medications: 23:38 Drug: Pantoprazole IVP 40 mg Route: IVP; Site: right antecubital; jb4 23:38 Drug: NS 0.9% IV 1000 ml Route: IV; Rate: 1 bolus; Site: right antecubital; jb4 23:38 Drug: fentaNYL (PF) IVP 25 mcg Route: IVP; Site: right antecubital; jb4 23:38 Drug: Ondansetron IVP 4 mg Route: IVP; Site: right antecubital; jb4 23:39 Drug: fentaNYL (PF) IVP 25 mcg Route: IVP; Site: right antecubital; jb4 12/13 00:03 Drug: GI Cocktail without - (Maalox PO Suspension 30 ml, Lidocaine Mucous jb4 Membrane Liquid 2 % 15 ml) Route: PO; 00:40 Drug: Aspirin PO Chewable Tablet 324 mg Route: PO; jb4 00:40 Drug: Clopidogrel PO 300 mg Route: PO; jb4 00:40 Drug: Atorvastatin PO 40 mg Route: PO; jb4 00:40 Drug: Enoxaparin Sub-Q 1 mg/kg Route: Sub-Q; Site: right upper abdomen; jb4 Disposition Summary: 12/13/22 00:26 Hospitalization Ordered Hospitalization Status: Inpatient Admission lorri Provider: Fran Sena cha Condition: Fair lorri Problem: new lorri Symptoms: have improved lorri Bed/Room Type: Standard lorri Location: Telemetry/MedSurg (Inpatient)(12/13/22 01:42) mw Room Assignment: 222(12/13/22 01:42) mw Diagnosis - Unstable angina lorri - Chest pain, unspecified lorri - Non ST elevation [place] lorri Discharge Instructions: - Discharge Summary Sheet lorri - Food Choices for Gastroesophageal Reflux Disease, Adult lorri - Esophagitis lorri - Gastroesophageal Reflux Disease, Adult lorri - Indigestion lorri - Gastroesophageal Reflux Disease, Adult, Myth-lk-Axly lorri Forms: - Medication Reconciliation Form lorri - SBAR form lorri Prescriptions: - Protonix 40 mg Oral Tablet - take 1 tablet by ORAL route once daily; 30 tablet; Refills: 0, Product lorri Selection Permitted - Zofran 4 mg Oral Tablet - take 1 tablet by ORAL route every 12 hours As needed; 20 tablet; Refills: 0, [facility] Product Selection Permitted - dicyclomine 20 mg Oral Tablet - take 1 tablet by ORAL route 4 times per day; 28 tablet; Refills: 0, Product lorri Selection Permitted Signatures: Dispatcher [employer] Meredith Carrera RN RN kl Webb, Martha RN Logan Alvarez MD MD cha Bryson, James, RN RN jb4 Brown, Sophia, PAJorge PAJorge sb4 Corrections: (The following items were deleted from the chart) 12/12 22:37 22:35 PMHx: Anemia; caron reardon 12/13 00:48 00:26 Telemetry/MedSurg (Inpatient) lorri jb4 00:48 00:26 lorri jb4 01:42 00:48 [facility] ER HOLD jb4 mw 01:42 00:48 ERHOLD- jb4 mw
--- NOTE | 2022-12-13 00:27 | ER ---
Nurse's Notes [facility] Name: Lexi Smith Age: 52 yrs Sex: Female : 1970 Arrival Date: 12/12/2022 Time: 22:30 Bed 7 Private MD: Diagnosis: Unstable angina;Chest pain, unspecified;Non ST elevation IN Presentation: 12/12 22:34 Chief complaint: Patient states: epigastric pain and high blood pressure began at 9 pm. Coronavirus screen: Vaccine status: Patient reports receiving the 2nd dose of the covid vaccine. Ebola Screen: Patient negative for fever greater than or equal to 101.5 degrees Fahrenheit, and additional compatible Ebola Virus Disease symptoms. Initial Sepsis Screen: Does the patient meet any 2 criteria? No. Patient's initial sepsis screen is negative. Does the patient have a suspected source of infection? No. Patient's initial sepsis screen is negative. Risk Assessment: Do you want to hurt yourself or someone else? Patient reports no desire to harm self or others. Onset of symptoms was December 12, 2022 at 21:00. 22:34 Method Of Arrival: Ambulatory 22:34 Acuity: DOUGIE 3 kl Triage Assessment: 22:37 General: Appears uncomfortable, well groomed, well developed, Behavior is cooperative, kl anxious. Pain: Complains of pain in epigastric area Pain currently is 9 out of 10 on a pain scale. 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 - Social history:: Smoking status: Patient denies any tobacco usage or history of. - Family history:: not pertinent. Screenin:44 [facility] ED Fall Risk Assessment (Adult) History of falling in the last 3 months, jb4 including since admission No falls in past 3 months (0 pts) Confusion or Disorientation No (0 pts) Score/Fall Risk Level 0 - 2 = Low Risk Oriented to surroundings, Maintained a safe environment. Abuse screen: Denies threats or abuse. Nutritional screening: No deficits noted. Tuberculosis screening: No symptoms or risk factors identified. Assessment: 23:42 General: Appears in no apparent distress. uncomfortable, Behavior is calm, cooperative, jb4 appropriate for age. Pain: Complains of pain in epigastric area Pain does not radiate. Pain currently is 10 out of 10 on a pain scale. Quality of pain is described as burning. Neuro: Level of Consciousness is awake, alert, obeys commands, Oriented to person, place, time, situation. Cardiovascular: Patient's skin is warm and dry. Respiratory: Airway is patent Respiratory effort is even, unlabored, Respiratory pattern is regular, symmetrical. GI: Reports upper abdominal pain, Patient currently denies diarrhea, nausea, vomiting. : No signs and/or symptoms were reported regarding the genitourinary system. EENT: No signs and/or symptoms were reported regarding the EENT system. Derm: Skin is intact, Skin is pink, warm \T\ dry. 12/13 01:07 Reassessment: Patient appears in no apparent distress at this time. Patient and/or jb4 family updated on plan of care and expected duration. Pain level reassessed. Patient is alert, oriented x 3, equal unlabored respirations, skin warm/dry/pink. Patient states feeling better. 01:50 Reassessment: Patient appears in no apparent distress at this time. Patient and/or jb4 family updated on plan of care and expected duration. Pain level reassessed. Patient is alert, oriented x 3, equal unlabored respirations, skin warm/dry/pink. Vital Signs: 12/12 22:34 BP 192 / 89; Pulse 52; Resp 18; Temp 97.6; Pulse Ox 99% on R/A; Weight 61.23 kg; Height kl 5 ft. 4 in. ; Pain 9/10; 23:00 BP 158 / 77; Pulse 55; Resp 18; Pulse Ox 100% ; vc1 12/13 00:00 BP 143 / 81; Pulse 65; Resp 16; Pulse Ox 100% on R/A; jb4 01:07 BP 147 / 73; Pulse 72; Resp 17; Pulse Ox 98% on R/A; jb4 01:50 BP 143 / 97; Pulse 74; Resp 16; Pulse Ox 100% on R/A; jb4 12/12 22:34 Body Mass Index 23.17 (61.23 kg, 162.56 cm) 12/12 22:34 Pain Scale: Adult ED Course: 12/12 22:33 Patient arrived in ED. ja2 22:35 Triage completed. 22:43 Logan Gerardo MD is Attending Physician. lorri 23:15 Initial lab(s) drawn, by ne, sent to lab. Inserted saline lock: 20 gauge in right jb4 antecubital area, using aseptic technique. Blood collected. 23:20 XRAY Chest (1 view) In Process Unspecified. EDMS 23:37 Vince Montalvo, RN is Primary Nurse. jb4 23:38 Basic Metabolic Panel Sent. jb4 23:38 LFT's Sent. jb4 23:38 CBC with Diff Sent. jb4 23:38 NT PRO-BNP Sent. jb4 23:38 Magnesium Sent. jb4 23:38 PT-INR Sent. jb4 23:38 Troponin HS Sent. jb4 23:44 No provider procedures requiring assistance completed. jb4 23:44 Patient has correct armband on for positive identification. Bed in low position. Call jb4 light in reach. Side rails up X 1. Client placed on continuous cardiac and pulse oximetry monitoring. NIBP monitoring applied. classroom monitor on. 23:55 US Abdomen Limited In Process Unspecified. EDWA 12/13 00:25 Fran Sena is Hospitalizing Provider. lorri 01:11 Patient admitted, IV remains in place. jb4 Administered Medications: 12/12 23:38 Drug: Pantoprazole IVP 40 mg Route: IVP; Site: right antecubital; jb4 23:38 Drug: NS 0.9% IV 1000 ml Route: IV; Rate: 1 bolus; Site: right antecubital; jb4 23:38 Drug: fentaNYL (PF) IVP 25 mcg Route: IVP; Site: right antecubital; jb4 23:38 Drug: Ondansetron IVP 4 mg Route: IVP; Site: right antecubital; jb4 23:39 Drug: fentaNYL (PF) IVP 25 mcg Route: IVP; Site: right antecubital; jb4 12/13 00:03 Drug: GI Cocktail without - (Maalox PO Suspension 30 ml, Lidocaine Mucous jb4 Membrane Liquid 2 % 15 ml) Route: PO; 00:40 Drug: Aspirin PO Chewable Tablet 324 mg Route: PO; jb4 00:40 Drug: Clopidogrel PO 300 mg Route: PO; jb4 00:40 Drug: Atorvastatin PO 40 mg Route: PO; jb4 00:40 Drug: Enoxaparin Sub-Q 1 mg/kg Route: Sub-Q; Site: right upper abdomen; jb4 Medication: 01:11 VIS not applicable for this client. jb4 Outcome: 00:26 Decision to Hospitalize by Provider. lorri 01:10 Admitted to ER Hold. Please see [facility] for further documentation. jb4 01:10 Condition: stable 01:10 Discharge instructions given to patient, Instructed on the need for admit, Demonstrated understanding of instructions. 02:09 Patient left the ED. jb4 Signatures: Dispatcher [employer] EDMS Meredith Rios RN Logan Eric MD MD cha Bryson, James, RN RN jb4 Alexander, Jessica ja2 Calcote, Vanessa, RN RN vc1 Corrections: (The following items were deleted from the chart) 12/12 22:37 22:35 PMHx: Anemia; caron reardon
[2022-12-13] MEDS ORDERED: ASPIRIN 81 MG CHEWABLE TABLET ONE (00:42)
[2022-12-13] MEDS ORDERED: CLOPIDOGREL 75 MG TABLET ONE (00:42)
[2022-12-13] MEDS ORDERED: ATORVASTATIN 40 MG TAB ONE (00:42)
[2022-12-13] MEDS ORDERED: ENOXAPARIN 60 MG/0.6 ML SQ ONE (00:43)
--- NOTE | 2022-12-13 00:44 | P.HP ---
Certification for Inpatient Patient admitted to: Inpatient With expected LOS: >2 Midnights Patient will require the following post-hospital care: None Practitioner: I am a practitioner with admitting privileges, knowledge of patient current condition, hospital course, and medical plan of care. Services: Services provided to patient in accordance with Admission requirements found in Title 42 Section 412.3 of the Code of Federal Regulations Patient History Date of Service: 12/13/22 Primary Care Provider: Bridger Reason for admission: NSTEMI History of Present Illness: Ms. Smith is a 52-year-old female with past medical history of hypertension who presented to the emergency department with complaints of burning abdominal pain that radiates up her chest. She was initially being worked up for abdominal causes, but found to have an elevated troponin of 109. After further discussion, she states that she has had some intermittent chest tightness over the past few days. She has never had a formal cardiac work-up. Her EKG is unremarkable. CT negative. She was given Lovenox, Plavix, aspirin, and atorvastatin Emergency Department. Vital signs remained stable. She will be admitted for further management. Allergies No Known Allergies Allergy (Verified 02/19/18 01:40) Home medications list reviewed: Yes Home Medications: Cholecalciferol (Vitamin D3) [Vitamin D 1000 Iu Tab] 1,000 unit PO DAILY 01/25/18 Iron Carb,Gl/FA/B12/C/Docusate [Ferralet 90 Tablet] 1 each PO DAILY 01/25/18 - Past Medical/Surgical History Diabetic: No -: HTN -: Anemia -: Partial hysterectomy Psychosocial/ Personal History: Patient is . - Family History Father -: Heart disease Mother -: Heart disease, Hypertension, Diabetes - Social History Smoking Status: Never smoker Alcohol use: No CD- Drugs: No Caffeine use: Yes Place of Residence: Home Review of Systems Respiratory: Shortness of Breath Cardiovascular: Chest Pain Gastrointestinal: Nausea, Abdominal Pain Physical Examination - Vital Signs Temperature: 97.6 F Blood Pressure: 158/77 Pulse: 55 Respirations: 18 Pulse Ox (%): 100 - Physical Exam General: Alert, In no apparent distress HEENT: Atraumatic, EOMI, Sclerae nonicteric Neck: Supple, 2+ carotid pulse no bruit Respiratory: Clear to auscultation bilaterally, Normal air movement Cardiovascular: Regular rate/rhythm, Normal S1 S2 Gastrointestinal: Normal bowel sounds, No tenderness Musculoskeletal: No tenderness Integumentary: No rashes Neurological: Normal speech, Normal affect - Studies Laboratory Data (last 24 hrs) 12/12/22 23:15: PT 11.1, INR 1.01 12/12/22 23:15: WBC 6.80, Hgb 13.4, Hct 39.9, Plt Count 273 12/12/22 23:15: Sodium 140, Potassium 3.9, BUN 17, Creatinine 0.94, Glucose 114 H, Magnesium 2.0, Total Bilirubin 0.3, AST 16, ALT 29, Alkaline Phosphatase 97, Lipase 28 Assessment and Plan - Problems (Diagnosis) (1) NSTEMI (non-ST elevated myocardial infarction) Current Visit: Yes Status: Acute (2) Hypertension Current Visit: Yes Status: Chronic Qualifiers: Hypertension type: primary hypertension Qualified Code(s): I10 - Essential (primary) hypertension - Plan Patient admitted for further management of NSTEMI. Initial troponin elevated at 109. Trend. Cardiology consult. Monitor on telemetry. Obtain echocardiogram, lipid panel, TSH, A1c. Continue therapeutic Lovenox, aspirin, atorvastatin. Monitoring and replete electrolytes per protocol. Reconcile and continue home medications. Lovenox for VTE prophylaxis. Full code. Discharge Plan: Home Plan to discharge in: Greater than 2 days - Advance Directives Does patient have a Living Will: No Does patient have a Durable POA for Healthcare: No - Code Status/Comfort Care Code Status Assessed: Yes Code Status: Full Code Physician Review: Patient Assessed, Agree with Above Assessment and Plan Critical Care: No Time Spent Managing Pts Care (In Minutes): 50
[2022-12-13] MEDS ORDERED: ONDANSETRON 4 MG/2 ML VIAL IV PRN (01:12)
[2022-12-13] MEDS ORDERED: ACETAMINOPHEN 500 MG TAB PO PRN (01:12)
[2022-12-13 01:55] LABS: Urine Bilirubin NEGATIVE (Negative); Urine Blood Negative (Negative); Urine Clarity Clear (Clear); Urine Color Colorless (Yellow); Urine Glucose NEGATIVE (Negative); Urine Protein NEGATIVE (Negative); Urine Urobilinogen Normal (Normal)
[2022-12-13 02:40] LABS: Thyroid Stimulating Hormone 1.92 uIU/mL (0.358-3.740)
[2022-12-13 02:47] VITALS: BMI 25.2
[2022-12-13 03:06] LABS: Troponin High Sensitivity 1202.9 pg/mL (<58.9)
[2022-12-13] MEDS: ASPIRIN EC 81 MG TAB PO SCH (07:45)
[2022-12-13] MEDS: ENOXAPARIN 60 MG/0.6 ML SQ SCH ×2 (11:54→23:06)
--- NOTE | 2022-12-13 17:50 | CON ---
Date of Consultation: 12/13/2022 Reason For Consultation: Elevated troponin with chest pain. History Of Present Illness: A 52-year-old female with past medical history of hypertension, presente d with burning sensation in the epigastric area that traveled up to chest and to the neck and it has been happening frequently on and off, lasts few minutes and eases up and has baseline discomfort abou t 3/10. She has shortness of breath on activity and this has been going on for the past few days. Past Medical History: Hypertension. Medications: Refer to reconciliation sheet for detailed list. Allergies: NO KNOWN DRUG ALLERGIES. Family History: Very strong family history of coronary artery disease. Sister required open-heart s urgery at age 41. Mother's first heart attack was in the mid 50s. Father also had open-heart surger y and bypass early in life. Social History: She does not smoke or drink. Does not use any drugs. Review of Systems: All systems reviewed and they were negative except what mentioned in HPI. Physical Examination: Vital Signs: Reviewed. Head and Neck: Pupils are equal, reactive to light. Intact eye movements. No JVD. No cervical lym phadenopathy. Neck is supple. Thyroid is not enlarged. Lungs: Clear to auscultation bilaterally. No rhonchi, wheezing, or crackles. No accessory muscle u se. Heart: Regular rate and rhythm. No extra sounds. Abdomen: Soft, nontender. Bowel sounds positive. No organomegaly. No masses or hernia. No rigidi ty or rebound. Extremities: No edema, clubbing, cyanosis. Intact pulses. Skin: No rash. Neurologic: Alert, awake, oriented x3. No acute focal deficits appreciated. Investigations: BUN is 17, creatinine 0.9. Troponin peaked at down to 806. Assessment/recommendation: 1.Non-ST elevation myocardial infarction, very typical symptoms and presentation. I discussed the c ase with the emergency room physician yesterday and the plan remains the same. Continue full anticoa gulation with Lovenox 1 mg/kg subcu q.12 hours, baby aspirin 81 mg daily, and high-dose statin. Also , if blood pressure allows to start metoprolol 25 mg twice a day and adjust for symptoms relief. Als o for the chest pain can use morphine sulfate p.r.n. and nitroglycerin patch can be used for symptoms relief. 2.Dyslipidemia. Continue Lipitor 40 mg at bedtime. 3.Hypertension. Can start metoprolol as above and monitor closely. Plan for coronary angiogram ear thursday. SR/MODL Voice ID: [id number] Report ID: [id number]
--- NOTE | 2022-12-13 18:09 | P.PN ---
Date of Service: 12/13/22 Patient seen and examined. She is complaining of mild intermittent chest pain. Stable vitals. Diagnosis: NSTEMI Hypertension Plan: Continue full dose Lovenox. Continue home antihypertensives. Low-dose beta-cecile Echocardiogram is pending. Cardiology to follow.
[2022-12-13] MEDS ORDERED: METOPROLOL TAR 25 MG TAB PO ONE (18:22)
[2022-12-13] MEDS: ATORVASTATIN 40 MG TAB PO SCH (20:33)
--- NOTE | 2022-12-13 21:54 | RAD REPORT ---
EXAM DESCRIPTION: CT - Abdomen Pelvis W Contrast - 12/13/2022 6:45 am CLINICAL HISTORY: EPIGASTRIC ABD PAIN TECHNIQUE: Axial computed tomography images of the abdomen and pelvis with intravenous contrast. S agittal and coronal reformatted images were created and reviewed. This CT exam was performed using one or more of the following dose reduction techniques: automated exposure control, adjustment of t he mA and/or kV according to patient size, and/or use of iterative reconstruction technique. COMPARISON: CT Abdomen Pelvis dated 02/18/2018 FINDINGS: Lung bases: Unremarkable. No mass. No consolidation. ABDOMEN: Liver: Multiple hepatic cysts. No follow-up imaging is necessary. Gallbladder and bile ducts: The gallbladder is contracted. No calcified stones. No ductal dilat ion. Pancreas: Unremarkable. No mass. No ductal dilation. Spleen: Unremarkable. No splenomegaly. Adrenals: Unremarkable. No mass. Kidneys and ureters: Unremarkable. No solid mass. No hydronephrosis. Stomach and bowel: Moderate stool. No bowel obstruction. No appreciable mucosal thickening. PELVIS: Appendix: Normal caliber appendix. No findings to suggest acute appendicitis. Bladder: Unremarkable. No mass. Reproductive: There has been a hysterectomy. No adnexal cysts or masses are identified. ABDOMEN and PELVIS: Intraperitoneal space: Unremarkable. No free air. No significant fluid collection. Bones/joints: Multilevel spondylosis. No acute fracture. No dislocation. Soft tissues: Tiny fat-containing umbilical hernia. Vasculature: Minimal atherosclerotic disease. No abdominal aortic aneurysm. Lymph nodes: Unremarkable. No enlarged lymph nodes. IMPRESSION: 1. No acute pulmonary process identified within the abdomen and pelvis. 2. Other findings as above. Electronically signed by: Mercy Crockett MD 12/13/2022 1:42 AM CDT Due to temporary technical issues with the PACS/Fluency reporting system, reports are being signed by the in house radiologists without review as a courtesy to insure prompt reporting. The interpreting radiologist is fully responsible for the content of the report.
--- NOTE | 2022-12-13 21:55 | RAD REPORT ---
EXAM DESCRIPTION: US - Abdomen Exam Limited - 12/12/2022 11:53 pm CLINICAL HISTORY: The patient is 52 years old and is Female; ABD PAIN TECHNIQUE: Real-time ultrasound of the right upper quadrant with image documentation. COMPARISON: No relevant prior studies available. FINDINGS: GALLBLADDER: The gallbladder slightly contracted. No gallstones are seen. No pericholecy stic fluid. COMMON BILE DUCT: Unremarkable as visualized. No stones. No dilation. IMPRESSION: Unremarkable sonographic appearance of the gallbladder. Electronically signed by: Aide Friedman MD 12/13/2022 12:45 AM CDT Due to temporary technical issues with the PACS/Fluency reporting system, reports are being signed by the in house radiologists without review as a courtesy to insure prompt reporting. The interpreting radiologist is fully responsible for the content of the report.
--- NOTE | 2022-12-13 22:15 | RAD REPORT ---
EXAM DESCRIPTION: RAD - Chest Single View - 12/12/2022 11:18 pm CLINICAL HISTORY: The patient is 52 years old and is Female; Chest pain;Abdominal distention TECHNIQUE: Frontal view of the chest. COMPARISON: No relevant prior studies available. FINDINGS: Lungs: Unremarkable. No consolidation. Pleural space: Unremarkable. No pneumothorax. Heart: Unremarkable. Mediastinum: Unremarkable. Bones/joints: Unremarkable. IMPRESSION: No acute findings in the chest. Electronically signed by: Ronald Peck MD 12/12/2022 11:50 PM CDT Due to temporary technical issues with the PACS/Fluency reporting system, reports are being signed by the in house radiologists without review as a courtesy to insure prompt reporting. The interpreting radiologist is fully responsible for the content of the report.
[2022-12-14 03:29] LABS: Magnesium 2.3 mg/dL (1.6-2.4); Potassium 4.1 mEq/L (3.5-5.1)
[2022-12-14] MEDS: METOPROLOL TAR 25 MG TAB PO SCH ×3 (05:08→17:04)
[2022-12-14] MEDS: LOSARTAN POTASSIUM 50 MG TABLET PO SCH (08:10)
[2022-12-14] MEDS: ASPIRIN EC 81 MG TAB PO SCH (08:11)
[2022-12-14] MEDS: hydroCHLOROthiazide 12.5 MG CAP PO SCH (08:11)
[2022-12-14] MEDS: ENOXAPARIN 60 MG/0.6 ML SQ SCH ×2 (11:24→17:21)
--- NOTE | 2022-12-14 12:40 | P.PN ---
Subjective Date of Service: 12/14/22 Primary Care Provider: Bridger Chief Complaint: NSTEMI Patient has no new complaint today. She denies any chest pain or shortness of breath today Physical Examination - Vital Signs Temperature: 97.8 F Blood Pressure: 132/66 Pulse: 66 Respirations: 16 Pulse Ox (%): 98 - Physical Exam General: Alert, In no apparent distress, Oriented x3 HEENT: Mucous membr. moist/pink Neck: JVD not distended Respiratory: Clear to auscultation bilaterally, Normal air movement Gastrointestinal: Soft and benign, Non-distended Musculoskeletal: No swelling Integumentary: No rashes Neurological: Normal strength at 5/5 x4 extr Assessment And Plan - Current Problems (Diagnosis) (1) Chest pain Current Visit: Yes Status: Acute (2) NSTEMI (non-ST elevated myocardial infarction) Current Visit: Yes Status: Acute (3) Hypertension Current Visit: Yes Status: Chronic Qualifiers: Hypertension type: primary hypertension Qualified Code(s): I10 - Essential (primary) hypertension - Plan Patient with a diagnosis of NSTEMI. Continue full anticoagulation with Lovenox. Cardiology-Dr. Nuno seen patient and planning cardiac catheterization tomorrow Continue aspirin, metoprolol and Lipitor. Blood pressure readings are better today. Continue home antihypertensives. Echocardiogram is pending.
--- NOTE | 2022-12-14 14:19 | EKG ---
Test Date: 2022-12-12 Test Time: 23:11:09 Electronic Scale Assembler And Tester: DAVION MEASUREMENT RESULTS: Intervals: Rate: 57 AR: 150 QRSD: 92 QT: 450 QTc: 438 [place]: P: 65 AR: 150 QRS: 84 T: 79 INTERPRETIVE STATEMENTS: Sinus bradycardia Possible Left atrial enlargement Borderline ECG Compared to ECG 01/25/2018 16:03:10 No significant changes Electronically Signed On 12-14-22 14:17:21 CDT by Elias Nuno
--- NOTE | 2022-12-14 15:05 | PN ---
Date of Progress Note: 12/14/2022 Subjective: Seen by bedside. Chest pain is better. Review of Systems: No active chest pain now or shortness of breath. No nausea, vomiting, diarrhea. No abdominal pain. No dysuria, polyuria, or urgency. All other systems reviewed and they were negative. Physical Examination: Vital Signs: Reviewed. Head and Neck: Pupils are equal, reactive to light. Intact eye movements. No JVD. No cervical lym phadenopathy. Neck is supple. Thyroid is not enlarged. Lungs: Clear to auscultation bilaterally. No rhonchi, wheezing, or crackles. No accessory muscle u se. Heart: Regular rate and rhythm. No extra sounds. Abdomen: Soft, nontender. Bowel sounds positive. No organomegaly. No masses or hernia. No rigidi ty or rebound. Extremities: No edema, clubbing, or cyanosis. Intact pulses. Skin: No rash. Neurologic: Alert, awake, oriented x3. No acute focal deficits appreciated. Investigations: Labs were reviewed. Assessment And Recommendations: 1.Non-ST elevation myocardial infarction. Continue Lovenox therapeutic dose, last dose to be given tonight, and keep n.p.o. past midnight and plan for coronary angiogram first in the morning. Continu e aspirin and continue beta-cecile. 2.Dyslipidemia. Continue statin. 3.Hypertension. Blood pressure is controlled. Continue current management. /LUCRECIAL Voice ID: [id number] Report ID: [id number]
[2022-12-14] MEDS: ATORVASTATIN 40 MG TAB PO SCH (20:27)
[2022-12-15 04:04] LABS: Magnesium 2.3 mg/dL (1.6-2.4); Phosphorus 3.6 mg/dL (2.5-4.9)
[2022-12-15] MEDS: METOPROLOL TAR 25 MG TAB PO SCH ×2 (05:31→17:10)
[2022-12-15] MEDS ORDERED: LIDOCAINE 1% 20 ML MDV ONE (06:45)
[2022-12-15] MEDS ORDERED: HEPA 1000U/500MLS 2,000 UNIT/1,000 ML BAG IV ONE (06:45)
[2022-12-15] MEDS ORDERED: VERAPAMIL HCL 10 MG/4 ML VIAL IV ONE (06:46)
[2022-12-15] MEDS ORDERED: ASPIRIN 325 MG TAB ONE (06:46)
[2022-12-15] MEDS ORDERED: FENTANYL CITR 100 MCG/2 ML ONE (06:46)
[2022-12-15] MEDS ORDERED: CLOPIDOGREL 75 MG TABLET ONE (06:46)
[2022-12-15] MEDS ORDERED: MIDAZOLAM HCL 2 MG/2 ML INJ ONE (06:46)
[2022-12-15] MEDS ORDERED: HEPARIN 5000 UNIT/ML 1 ML VIAL ONE (06:46)
[2022-12-15] MEDS ORDERED: HEPARIN 10,000 UNIT/10 ML VIAL IV ONE (06:47)
[2022-12-15] MEDS ORDERED: NITROGLYCERIN/D5W 25 MG/250 ML BTL IV ONE (06:47)
[2022-12-15] MEDS ORDERED: TICAGRELOR 90 MG TABLET PO ONE (06:47)
[2022-12-15] MEDS ORDERED: ATROPINE SULF 1 MG/10 ML SYR IV ONE (06:47)
[2022-12-15] MEDS ORDERED: NITROGLYCERIN 100 MCG/ML SYR (for cath lab use only) IV ONE (06:47)
[2022-12-15] MEDS ORDERED: NA CHLORIDE 0.9% 500 ML ONE ×2 (06:56→07:08)
--- NOTE | 2022-12-15 08:16 | OP ---
Date of Procedure: 12/15/2022 Surgeon: AMAIRANI THOMPSON Procedures Performed: 1.Selective coronary angiogram. 2.Left heart catheterization. Indication: Non-ST elevation myocardial infarction. Access: Right radial artery 6-[place] closed with TR band. Complications: None. Bleeding: Less than 20 mL. Sedation: None. Description Of Procedure: After risks, benefits, alternatives were explained, the patient agreed to procedure and signed informed consent. The patient was brought into the cardiac catheterization labo [facility], prepped and draped in the usual sterile fashion. Then, I accessed right radial artery using pediatric micropuncture kit, placed 6-[place] Slender sheath, took 5-[place] 4.0 catheter over th e J-wire into the aortic root and then engaged the left main and then right coronary artery, took sta ndard views, and then the catheter was pushed over the wire into the LV, measured the LVEDP, pullback did not record any gradient. Then, I removed the catheter and the sheath and placed TR band with go od hemostasis. Findings: 1.Left main; normal. 2.LAD; moderate-sized vessel, normal. Normal diagonal branches. 3.Left circumflex; it is moderate size vessel that is normal, free of disease, and normal OM branche s. 4.RCA; it is moderate size and it is dominant and it is normal. 5.Normal LVEDP at 10 mmHg. Conclusion: 1.Normal coronary arteries. 2.Normal LVEDP. Recommendations: Search for other causes of chest pain and elevated troponin. SR/MODL Voice ID: [id number] Report ID: [id number]
--- NOTE | 2022-12-15 08:38 | PN ---
Date of Progress Note: 12/15/2022 Subjective: The patient was seen today. Has no symptoms this morning. Review of Systems: No chest pain, shortness of breath, orthopnea, cough. No nausea, vomiting, diarrhea. All other syst ems reviewed and they were negative. Physical Examination: Vital Signs: Reviewed. Head and Neck: Pupils are equal, reactive to light. Intact eye movements. No JVD. No cervical lym phadenopathy. Neck is supple. Thyroid is not enlarged. Lungs: Clear to auscultation bilaterally. No rhonchi, wheezing, or crackles. No accessory muscle u se. Heart: Regular rate and rhythm. No extra sounds. Abdomen: Soft, nontender. Bowel sounds positive. No organomegaly. No masses or hernia. No rigidi ty or rebound. Extremities: No edema, clubbing, or cyanosis. Intact pulses. Skin: No rash. Neurologic: Alert, awake, oriented x3. No acute focal deficits appreciated. Investigations: Labs were reviewed. Assessment And Recommendations: 1.Chest pain with elevated troponin suggestive of non-ST elevation myocardial infarction. We did a coronary angiogram. Her coronary arteries are normal. We will check a D-dimer on her. If it is rajni vated, we will obtain CTA of the lungs. It seems like her alert elevated troponin is demand ischemia as she has no coronary artery disease. Await on the results of the D-dimer and further workup to be done accordingly. 2.Hypertension. Blood pressure is controlled. 3.Dyslipidemia. Continue statin. SR/MODL Voice ID: [id number] Report ID: [id number]
[2022-12-15] MEDS: LOSARTAN POTASSIUM 50 MG TABLET PO SCH (09:00)
[2022-12-15] MEDS: hydroCHLOROthiazide 12.5 MG CAP PO SCH (09:00)
[2022-12-15] MEDS: ASPIRIN EC 81 MG TAB PO SCH (09:00)
--- NOTE | 2022-12-15 10:19 | EKG ---
Test Date: 2022-12-13 Test Time: 03:31:42 Dining Room Manager: ANDREW MEASUREMENT RESULTS: Intervals: Rate: 60 WI: 154 QRSD: 88 QT: 430 QTc: 430 [place]: P: 66 WI: 154 QRS: 88 T: 80 INTERPRETIVE STATEMENTS: Normal sinus rhythm Possible Left atrial enlargement Borderline ECG Compared to ECG 12/12/2022 23:11:09 Sinus bradycardia no longer present Electronically Signed On 12-15-22 10:14:10 CDT by Neal Beyer
[2022-12-15] MEDS: ENOXAPARIN 60 MG/0.6 ML SQ SCH (12:00)
[2022-12-15 16:41] VITALS: O2SAT 97
[2022-12-15 17:10] VITALS: BP 125/67
[2022-12-15 18:27] VITALS: TEMP 97.4
--- NOTE | 2022-12-15 19:19 | P.DS ---
Admission Date: 12/13/22 Discharge Date: 12/15/22 Primary Care Provider: Bridger Disposition: ROUTINE DISCHARGE Discharge Condition: FAIR Reason for Admission: NSTEMI - Problems (1) Chest pain Current Visit: Yes Status: Acute (2) NSTEMI (non-ST elevated myocardial infarction) Current Visit: Yes Status: Acute (3) Hypertension Current Visit: Yes Status: Chronic Qualifiers: Hypertension type: primary hypertension Qualified Code(s): I10 - Essential (primary) hypertension Brief History of Present Illness: Ms. Smith is a 52-year-old female with past medical history of hypertension who presented to the emergency department with complaints of burning abdominal pain that radiates up her chest. She was initially being worked up for abdominal causes, but found to have an elevated troponin of 109. After further discussion, she reported intermittent chest tightness over the past few days. She has never had a formal cardiac work-up. Her EKG is unremarkable. CT negative. She was given Lovenox, Plavix, aspirin, and atorvastatin Emergency Department. Vital signs remained stable. Patient admitted for further management. Hospital Course: Patient admitted to the medical floor and treated with full dose Lovenox, placed on metoprolol and aspirin and Lipitor. She was seen and evaluated by cardiology Dr. Nuno who recommended cardiac catheterization. Cardiac catheterization showed normal coronary arteries. D-dimer was obtained to assess for any thromboembolism that could have caused elevated troponin. D-dimer was negative. Echocardiogram also reported as unremarkable by cardiology. Patient is deemed stable for discharge. Vital Signs/Physical Exam: Temp Pulse Resp BP Pulse Ox 97.4 F 63 14 125/67 97 12/15/22 16:00 12/15/22 17:10 12/15/22 16:00 12/15/22 17:10 12/15/22 16:00 General: Alert, In no apparent distress, Oriented x3 HEENT: Mucous membr. moist/pink Neck: Supple, JVD not distended Respiratory: Clear to auscultation bilaterally, Normal air movement Cardiovascular: No edema, Regular rate/rhythm, Normal S1 S2 Gastrointestinal: Normal bowel sounds, Soft and benign, Non-distended, No tenderness Musculoskeletal: No swelling Laboratory Data at Discharge: WBC 6.80 thou/uL (4.3-10.9) 12/12/22 23:15 Hgb 13.4 g/dL (12.0-15.0) 12/12/22 23:15 Hct 39.9 % (36.0-45.0) 12/12/22 23:15 Plt Count 273 thou/uL (152-406) 12/12/22 23:15 PT 11.1 SECONDS (9.5-12.5) 12/12/22 23:15 INR 1.01 12/12/22 23:15 Sodium 138 mEq/L (136-145) 12/15/22 03:18 Potassium 4.0 mEq/L (3.5-5.1) 12/15/22 03:18 BUN 15 mg/dL (7-18) 12/15/22 03:18 Creatinine 0.84 mg/dL (0.55-1.02) 12/15/22 03:18 Glucose 103 mg/dL (74-106) 12/15/22 03:18 Phosphorus 3.6 mg/dL (2.5-4.9) 12/15/22 03:18 Magnesium 2.3 mg/dL (1.6-2.4) 12/15/22 03:18 Total Bilirubin 0.3 mg/dL (0.2-1.0) 12/12/22 23:15 AST 16 U/L (15-37) 12/12/22 23:15 ALT 29 U/L (13-56) 12/12/22 23:15 Alkaline Phosphatase 97 U/L (45-117) 12/12/22 23:15 Triglycerides 68 mg/dL (<150) 12/13/22 01:54 Cholesterol 172 mg/dL (<200) 12/13/22 01:54 HDL Cholesterol 60 mg/dL (40-60) 12/13/22 01:54 Cholesterol/HDL Ratio 2.87 12/13/22 01:54 Lipase 28 U/L (13-75) 12/12/22 23:15 Home Medications: Losartan/Hydrochlorothiazide [Losartan-Hctz 100-12.5 mg Tab] 1 tab PO DAILY 12/13/22 Aspirin [Aspirin EC] 81 mg PO DAILY #30 tab 12/15/22 New Medications: Aspirin [Aspirin EC] 81 mg PO DAILY #30 tab Diet: AHA Activity: Ad sharon Time spent managing pt's care (in minutes): 32
--- NOTE | 2022-12-16 07:28 | ECHO ---
HEIGHT: 5 ft 4 in WEIGHT: 135 lb 0 oz DATE OF STUDY: 12/15/[address]: Valeri Piedra 2-DIMENSIONAL: YES M.MODE: YES DOPPLER: YES COLOR FLOW: YES TDS: PORTABLE: YES DEFINITY: BUBBLE STUDY: DIAGNOSIS: NON ST ELEVATION MYOCARDIAL INFARCTION CARDIAC HISTORY: CATHERIZATION: YES SURGERY: PROSTHETIC VALVE: PACEMAKER: MEASUREMENTS (cm) DIASTOLIC (NORMALS) SYSTOLIC (NORMALS) IVSd 0.8 (0.6-1.2) LA Diam 2.8 (1.9-4.0) LVEF 61% LVIDd 3.7 (3.5-5.7) LVIDs 2.5 (2.0-3.5) %FS 32% LVPWd 0.9 (0.6-1.2) Ao Diam 2.5 (2.0-3.7) 2 DIMENSIONAL ASSESSMENT: RIGHT ATRIUM: NORMAL LEFT ATRIUM: NORMAL RIGHT VENTRICLE: NORMAL LEFT VENTRICLE: NORMAL TRICUSPID VALVE: NORMAL MITRAL VALVE: NORMAL PULMONIC VALVE: NORMAL AORTIC VALVE: NORMAL PERICARDIAL EFFUSION: NONE AORTIC ROOT: NORMAL LEFT VENTRICULAR WALL MOTION: NORMAL DOPPLER/COLOR FLOW: NORMAL COMMENTS: 1. NORMAL 2-DIMENSIONAL ECHOCARDIOGRAM WITH DOPPLER. 2. NO WALL MOTION ABNORMALITY 3. TECHNICALLY DIFFICULT STUDY TECHNOLOGIST: ADELFO TAPIA
== END 2022-12-15 21:39 | disposition home or self-care (01) | DRG 282 ==
LOC: ER 22:30 → ERHOLD 12-13 00:34 → 2ND 12-13 01:45
PROVIDERS: ADMIT Internal Medicine; ATTEND Internal Medicine
PROC: 4A023N7 Measurement of Cardiac Sampling and Pressure, Left Heart, Percutaneous Approach (ICD-10-PCS; principal; 2022-12-15)
PROC: B2111ZZ Fluoroscopy of Multiple Coronary Arteries using Low Osmolar Contrast (ICD-10-PCS; 2022-12-15)
DX: I21.4 Non-ST elevation (NSTEMI) myocardial infarction (principal); I10 Essential (primary) hypertension; E78.5 Hyperlipidemia, unspecified; Z79.82 Long term (current) use of aspirin; Z79.899 Other long term (current) drug therapy; Z90.711 Acquired absence of uterus with remaining cervical stump
CPT/HCPCS: 36222; 36415; 71045; 74177; 76705; 76937; 80048; 80061; 80076; 81003; 83036; 83690; 83735; 83880; 84100; 84443; 84484; 85025; 85379; 85610; 93005; 93306; 93458; 96372; 96374; 96375; 99285; C1893; C9113; J0461; J1644; J1650; J2001; J2250; J2405; J3010; J7030; J7040; Q9966; Q9967